=== PATIENT | male | born 1995 | race Two or more races ===

== ENCOUNTER 2024-08-08 17:39 | Inpatient (IN) | payer MEDICAID, OTHER ==
[~2024-08-08] VITALS: Ht 162.6 cm; Wt 77.2 kg
--- NOTE | 2024-08-08 18:13 | ED.PDOC ---
History of present illness HPI Comments HPI: 29 y/o M, BIBA with PMHX of Dm, anxiety, depression, BPD, and DID presents to the ED for CC of hyperglycemia. EMS reports, patient is coming from a crisis center where he was relayed to the ED for a further evaluation due to an elevated BS reading. Patient relays, that he was trying to be admitted to a detox program but was declined due to his hyperglycemia. Patient relays, that he was given x4 units of insulin at the crisis center. Patient endorses, using various illicit street drugs and alcohol; most recent being cocaine, methamphetamine. Patient denies auditory hallucinations, visual hallucinations, suicidal ideation, or homicidal ideation. No other symptoms or modifiers pre sent at this time. Patient states he has been out of his insulin for approximately a month. He picked it up yesterday. Patient wants to meet with the a professor of social work. He will stay in the hospital until tomorrow morning when the professor of social work available. VITALS: Temp: 98.7 BP: 150/89 HR:94 RR: 16 SPO2: 98% Past medical history: DM, ANXIETY, DEPRESSION, BPD, DID Past surgical history: BACK SX derick Izaguirre HPI: Poor Historian. Denies any symptoms REVIEW OF SYSTEMS: CONSTITUTIONAL: Denies acute: fever, diaphoresis, chills, generalized weakness. HEAD: Denies acute: headache, photophobia Eyes: Denies acute: Double vision, vision loss, eye pain, eye discharge. EARS: Denies acute: tinnitus, hearing loss, ear discharge, ear pain, THROAT: Denies acute: sore throat, swelling, difficulty swallowing , pain with swallowing, change in voice. NECK: Denies acute: neck pain, neck swelling, stiff neck. HEART: Denies acute : chest pain, palpitations, LUNGS: Denies acute: SOB, wheezing, cough, hemoptysis ABDOMEN: Denies acute: abdominal pain, Nausea, Vomiting, diarrhea, melena , hematemesis, hematochezia SKIN: Denies acute: rash, redness, lesions, itchiness. EXTREMITIES: Denies acute: calf pain, numbness, tingling, weakness, denies pain in extremity. Denies acute: Low back pain. Neuro: Denies acute: focal neurological deficit, motor or sensory focal neurological deficit, tremors, seizure like activity, confusion, dizziness, change in mental status, loss of bowel or bladder function, cauda equina like symptoms. : Denies acute: dysuria, hematuria, flank pain, increase in urinary frequency. PSYCH: Denies acute: hallucination, suicidal ideation, homicidal ideation. PHYSICAL EXAM: General: ----no----acute distress, awake and alert. Head: normocephalic, atraumatic. Neck: supple, trachea is midline, no swelling. Throat: Normal phonation. Eyes:, no erythema, no purulent discharge, no proptosis, no icterus. Heart: regular rate, regular rhythm, no significant murmur appreciated. Lungs: no apparent respiratory distress, Able to speak in full sentences. No wheezing, no rhonchi, no crackles. No stridors Clear to auscultation bilaterally. Abdomen: non tender to palpation, non distended, soft, no guarding, no rebound, + bowel sounds. Neuro: Awake, Alert, oriented to name, self, situation, follows commands GCS=15. Speech is normal. Skin: no petechia, no purpura, no cyanosis, non-pale, not jaundice. Lower extremities: --no - Pitting edema no deformity, no focal swelling, no calf TTP. Makes eye contact. moves all four extremities. Face: no apparent facial droop. Ambulating in the ED independently. ED COURSE: Chief Complaint: Hyperglycemia Time Seen by MD: 18:00 History of present illness: Nurses Notes, Flatwork Presser Notes, Medications, Allergies Allergies: Coded Allergies: NO KNOWN ALLERGIES (Unverified , 08/08/24) Home Meds Active Scripts Azithromycin (Azithromycin) 500 Mg Tab, 1 TAB PO DAILY for 5 Days, #5 TAB Prov:HAIDER LUONG DO 08/08/24 Information Source: Patient, Emergency Med Personnel Mode of Arrival: EMS Timing: Hours Duration: Since onset Prehospital treatment: Accucheck [place]: None History of: None Associated signs and symptoms: None Was a procedure done? Was a procedure done?: No Differential Diagnosis (DM) Differential Diagnosis: Dehydration, Diabetic Coma, DKA, Electrolyte Abnormality, Hyperglycemia, Hyperosmolar State, Hypoglycemia, UTI X-Ray, Labs, Meds, VS Vital Signs Date Time Temp Pulse Resp B/P (MAP) Pulse Ox O2 Delivery O2 Flow Rate FiO2 08/08/24 20:36 98.3 87 18 145/87 (106) 97 98.3 08/08/24 20:36 87 18 97 Room Air 08/08/24 17:59 93 08/08/24 17:51 98.7 94 16 150/89 (109) 94 98.7 Lab Test 08/08/24 22:16 08/08/24 22:15 08/08/24 21:50 08/08/24 21:28 Range/Units POC Glucose 369 H 430 *H 389 H 70-106 mg/dl Troponin I High Sensitivity < 3 L </=54 ng/L Test 08/08/24 20:29 08/08/24 20:12 08/08/24 19:12 Range/Units POC Glucose 350 H 70-106 mg/dl Urine Color Light-yellow Yellow Urine Clarity Clear Clear Urine pH 7.0 5.0-9.0 Urine Specific [place] 1.042 H 1.001-1.035 Urine Protein Negative Negative Urine Ketones Negative Negative Urine Blood Negative Negative /uL Urine Nitrite Negative Negative Urine Bilirubin Negative Negative Urine Urobilinogen Normal Negative mg/dL Urine Leukocyte Esterase Negative Negative /uL Urine RBC 6 0 - 3 /hpf Urine Microscopic WBC 2 0-3 /HPF Urine Squamous Epithelial Cells Few <5 /hpf Urine Bacteria None seen None Seen /hpf Urine Glucose 4+ H Normal mg/dL Urine Opiates Screen Neg NEGATIVE Urine Fentanyl Screen Neg NEGATIVE Urine Barbiturates Screen Neg NEGATIVE Urine Phencyclidine Screen Neg NEGATIVE Urine Amphetamines Screen Neg NEGATIVE Urine Benzodiazepines Screen Neg NEGATIVE Urine Cocaine Screen Neg NEGATIVE Urine Cannabinoids Screen Neg NEGATIVE White Blood Count 10.0 4.4-10.8 10^3/uL Red Blood Count 4.98 4.5-5.90 10^6/uL Hemoglobin 15.1 13.5-17.5 g/dL Hematocrit 43.8 41.0-53.0 % Mean Corpuscular Volume 87.9 80.0-100.0 fL Mean Corpuscular Hemoglobin 30.3 28.0-32.0 pg Mean Corpuscular Hemoglobin Concent 34.4 32.0-36.0 g/dL Red Cell Distribution Width 13.8 11.8-14.3 % Platelet Count 406 140-450 10^3/uL Mean Platelet Volume 7.3 6.9-10.8 fL Neutrophils (%) (Auto) 62.1 37.0-80.0 % Lymphocytes (%) (Auto) 26.6 10.0-50.0 % Monocytes (%) (Auto) 11.1 0.0-12.0 % Eosinophils (%) (Auto) 0.0 0.0-7.0 % Basophils (%) (Auto) 0.2 0.0-2.0 % Neutrophils # (Auto) 6.2 1.6-8.6 10 ^3/uL Lymphocytes # (Auto) 2.7 0.4-5.4 10 ^3/uL Monocytes # (Auto) 1.1 0-1.3 10 ^3/uL Eosinophils # (Auto) 0 0-0.8 10 ^3/uL Basophils # (Auto) 0 0-0.2 10 ^3/uL Nucleated Red Blood Cells 0.1 % Sodium Level 137 136-145 mmol/L Potassium Level 4.0 3.5-5.1 mmol/L Chloride Level 101 98-107 mmol/L Carbon Dioxide Level 29 20-31 mmol/L Anion Gap 7 5-15 Blood Urea Nitrogen 10 9-23 mg/dL Creatinine 0.94 0.700-1.30 mg/dL Glomerular Filtration Rate Calc 111 >90 mL/min BUN/Creatinine Ratio 10.6 10.0-20.0 Serum Glucose 359 H 74-106 mg/dL Lactic Acid Level 1.2 0.4-2.0 mmol/L Calcium Level 10.4 8.7-10.4 mg/dL Magnesium Level 2.2 1.6-2.6 mg/dL Total Bilirubin 0.4 0.2-1.0 mg/dL Aspartate Amino Transferase (AST) 12 L 13-40 U/L Alanine Aminotransferase (ALT) 22 7-40 U/L Alkaline Phosphatase 120 H 46-116 U/L Troponin I High Sensitivity < 3 L </=54 ng/L Total Protein 7.7 5.7-8.2 g/dL Albumin 5.0 H 3.2-4.8 g/dL Lipase 41 12-53 U/L Beta-Hydroxybutyric Acid 0.148 < 0.4 mmol/L Plasma/Serum Blood Alcohol < 3.0 <10 mg/dL Current Medications Medications (Trade) Dose Ordered Sig/Esdras Route Start Time Stop Time Status Last Admin Sodium Chloride 1,000 ml @ 1,000 mls/hr Q1H ONCE IV 08/08/24 18:00 08/08/24 18:59 DC 08/08/24 20:39 Ceftriaxone Sodium 50 ml @ 100 mls/hr ONCE ONCE IV 08/08/24 21:00 08/08/24 21:29 DC 08/08/24 21:04 Insulin Human Regular (InsuLIN R) 5 units ONCE ONCE IV 08/08/24 22:00 08/08/24 22:01 DC 08/08/24 21:58 Sodium Chloride 1,000 ml @ 1,000 mls/hr Q1H ONCE IV 08/08/24 22:30 08/08/24 23:29 08/08/24 22:23 [place] [address] Ph: [phone] DIAGNOSTIC IMAGING Diagnostic Imaging Report : [id number] Signed PATIENT: DERICK IZAGUIRRE ACCT: [id number] UNIT: [id number] : 1995 LOC: ER ROOM / BED: / AGE / SEX: 29 / M ADM STATUS: REG ER SERVICE 205 ORDERING PHYSICIAN: HAIDER LUONG DO PROCEDURE(s): CXRP - CHEST PORTABLE REASON: hyperglycemia ORDER NUMBER(s): [id number], ACCESSION NUMBER(s): [id number] CHEST RADIOGRAPH Indication: hyperglycemia Technique: Single frontal view of the chest was obtained Comparison: None FINDINGS: Lines and Tubes: None Lungs: Minimal opacity of the right lower lung zone. Pleura: No effusion. No pneumothorax. Cardiomediastinal contours: Unremarkable Bones: No acute osseous abnormality. IMPRESSION: Right lower lung zone pneumonia/atelectasis ATED BY: LAINE MABRY DO DICTATED DATE/TIME: 08/08/241841 SIGNED BY: LAINE MABRY DO SIGNED DATE/TIME: 08/08/241841 CC: Time of 1ST Reevaluation: 18:30 Reevaluation 1ST: Unchanged Time of 2ND Reevaluation: 22:44 Reevaluation 2ND: Improved Patient Education/Counseling: Diagnosis, Treatment Family Education/Counseling: Other Comments Patient presented with the above HPI.---hyperglycemia---workup was initiated. patient was found with the above mentioned diagnosis. the following medications were ordered: please refer to order lists of meds and tests obtained by myself Dr. Luong. Patient ED course and VS have been stabilized. Patient has been reassessed in the ED and remained in a stable condition. Pertinent incidental findings were discussed with the patient and/or family. Patient/family voices understanding and is agreeable with plan. Patient has been observed in the ED adequate length of time to insure improvement/stability. Escalation of care considered: Consideration of escalation to observation or admission Patient will wait in the ED per his request until he is seen by social service tomorrow. He will be placed for ED observation for now. The care of this patient was signed out to my colleague Dr. Mcarthur. All the reports of any imaging studies that were ordered by myself were reviewed by myself. Departure 1 Departure Time of Disposition: 19:48 Impression: Primary Impression: Hyperglycemia due to diabetes mellitus Additional Impressions: Noncompliance with medication regimen Pneumonia Homelessness Disposition: 01 HOME / SELF CARE / HOMELESS Condition: Stable Additional Instructions: [place] [address] Ph: [phone] DIAGNOSTIC IMAGING Diagnostic Imaging Report : [id number] Signed PATIENT: DERICK IZAGUIRRE ACCT: [id number] UNIT: [id number] : 1995 LOC: ER ROOM / BED: / AGE / SEX: 29 / M ADM STATUS: REG ER SERVICE 1754 ORDERING PHYSICIAN: HAIDER LUONG DO PROCEDURE(s): CXRP - CHEST PORTABLE REASON: hyperglycemia ORDER NUMBER(s): [id number], ACCESSION NUMBER(s): [id number] CHEST RADIOGRAPH Indication: hyperglycemia Technique: Single frontal view of the chest was obtained Comparison: None FINDINGS: Lines and Tubes: None Lungs: Minimal opacity of the right lower lung zone. Pleura: No effusion. No pneumothorax. Cardiomediastinal contours: Unremarkable Bones: No acute osseous abnormality. IMPRESSION: Right lower lung zone pneumonia/atelectasis ATED BY: LAINE MABRY DO DICTATED DATE/TIME: 08/08/241841 SIGNED BY: LAINE MABRY DO SIGNED DATE/TIME: 08/08/241841 CC: e-Prescriptions Azithromycin (Azithromycin) 500 Mg Tab 1 TAB PO DAILY for 5 Days, #5 TAB Prov: HAIDER LUONG DO 08/08/24 Discharged With: Self Critical Care Note Critical Care Time?: Yes (35 min-critical care time only) Heart Score Heart Score: Heart Score Response (Comments) Value History N/A 0 EKG N/A 0 Age N/A 0 Risk Factors N/A 0 Troponin N/A 0 Total 0 I personally scribed for HAIDER LUONG DO ([email or web address]) on 08/08/24 at 18:13. Electronically submitted by Catherine Aldrich ([email or web address]). I personally scribed for HAIDER LUONG DO ([email or web address]) on 08/08/24 at 18:21. Electronically submitted by Catherine Aldrich ([email or web address]). I personally scribed for CHERISEHAIDER CAMPOS J DO ([email or web address]) on 08/08/24 at 18:31. Electronically submitted by Catherine Aldrich ([email or web address]). I personally scribed for HAIDER LUONG J DO ([email or web address]) on 08/08/24 at 18:36. Electronically submitted by Catherine Aldrich ([email or web address]). I personally scribed for HAIDER LUONG J DO ([email or web address]) on 08/08/24 at 18:40. Electronically submitted by Catherine Aldrich ([email or web address]). I personally scribed for KEATON LUONGE J DO ([email or web address]) on 08/08/24 at 21:02. Electronically submitted by Catherine Aldrich ([email or web address]). KEAOTN LUONGE J DO Aug 08, 2024 18:13
--- NOTE | 2024-08-08 18:45 | DVH ---
CHEST RADIOGRAPH Indication: hyperglycemia Technique: Single frontal view of the chest was obtained Comparison: None FINDINGS: Lines and Tubes: None Lungs: Minimal opacity of the right lower lung zone. Pleura: No effusion. No pneumothorax. Cardiomediastinal contours: Unremarkable Bones: No acute osseous abnormality. IMPRESSION: Right lower lung zone pneumonia/atelectasis
[2024-08-08 19:25] LABS: Basophils # (auto) 0 10 ^3/uL (0-0.2); Basophils % (auto) 0.2 % (0.0-2.0); Eosinophils # (auto) 0 10 ^3/uL (0-0.8); Hematocrit 43.8 % (41.0-53.0); Hemoglobin 15.1 g/dL (13.5-17.5); Lymphocytes # (auto) 2.7 10 ^3/uL (0.4-5.4); Lymphocytes % (auto) 26.6 % (10.0-50.0); Mean Corpuscular Hemoglobin 30.3 pg (28.0-32.0); Mean Corpuscular Hgb Conc. 34.4 g/dL (32.0-36.0); Mean Corpuscular Volume 87.9 fL (80.0-100.0); Monocytes # (auto) 1.1 10 ^3/uL (0-1.3); Monocytes % (auto) 11.1 % (0.0-12.0); Neutrophils # (auto) 6.2 10 ^3/uL (1.6-8.6); Neutrophils % (auto) 62.1 % (37.0-80.0); Nucleated Red Blood Cells % 0.1 %; Platelet Count (auto) 406 10^3/uL (140-450); Red Blood Cells 4.98 10^6/uL (4.5-5.90); Red Cell Distribution Width 13.8 % (11.8-14.3)
[2024-08-08 19:41] LABS: Alanine Aminotransferase 22 U/L (7-40); Anion Gap 7 (5-15); BUN/Creatinine Ratio 10.6 (10.0-20.0); Blood Urea Nitrogen 10 mg/dL (9-23); Calcium 10.4 mg/dL (8.7-10.4); Carbon Dioxide 29 mmol/L (20-31); Chloride 101 mmol/L (98-107); Magnesium 2.2 mg/dL (1.6-2.6); Sodium 137 mmol/L (136-145); Total Protein 7.7 g/dL (5.7-8.2)
[2024-08-08 19:42] LABS: Bilirubin, Total 0.4 mg/dL (0.2-1.0)
[2024-08-08 19:44] LABS: Alkaline Phosphatase 120 U/L (46-116); Aspartate Aminotransferase 12 U/L (13-40); Blood Alcohol < 3.0 mg/dL (<10); Glucose 359 mg/dL (74-106)
[2024-08-08 20:03] LABS: Lipase 41 U/L (12-53)
[2024-08-08] MEDS: SODIUM CHLORIDE 0.9% 1,000 ML IV ONE ×2 (20:39→22:23)
[2024-08-08 20:49] LABS: Urine Bacteria None Seen /hpf (None Seen)
[2024-08-08] MEDS: InsuLIN REG 1unit/0.01ml Soln (100units/ml) IV ONE ×2 (20:49→21:58)
[2024-08-08] MEDS: cefTRIAXone 1GM/50ML D5W 50 ML IV ONE (21:04)
[2024-08-08 21:07] LABS: Urine Blood Negative /uL (Negative); Urine Clarity Clear (Clear); Urine Color Light-Yellow (Yellow); Urine Protein, UAD Negative (Negative); Urine Specific Gravity 1.042 (1.001-1.035); Urine Squamous Epithelial Cell FEW /hpf (<5); Urine Urobilinogen Normal (Negative); Urine WBC 2 /HPF (0-3)
[2024-08-08] MEDS ORDERED: AZIT500T66 PO (21:23)
[2024-08-08 21:25] LABS: Amphetamine Screen, Urine Neg (NEGATIVE)
[2024-08-08 21:26] LABS: Cannabinoid Screen, Urine Neg (NEGATIVE)
[2024-08-08 21:29] LABS: Barbiturate Scree,Urine Neg (NEGATIVE); Benzodiazephine Screen, Urine Neg (NEGATIVE); Cocaine Screen, Urine Neg (NEGATIVE); Opiate Scree,Urine Neg (NEGATIVE); Phencyclidine Screen, Urine Neg (NEGATIVE)
[2024-08-09 08:00] VITALS: PULSE 85; RESP 16; O2SAT 96
--- NOTE | 2024-08-09 09:34 | ED.PDOC ---
Departure 1 Departure Time of Disposition: 09:33 (Patient with a pneumonia. Patient is not septic. We will admit patient for further workup) Impression: Primary Impression: Pneumonia Qualified Codes: J18.9 - Pneumonia, unspecified organism Additional Impressions: Hyperglycemia due to diabetes mellitus Homelessness Noncompliance with medication regimen Disposition: ADMITTED INPATIENT Condition: Serious Additional Instructions: [address] [address] Ph: [phone] DIAGNOSTIC IMAGING Diagnostic Imaging Report : [id number] Signed PATIENT: DERICK PAYTON ACCT: [id number] UNIT: [id number] : 1995 LOC: ER ROOM / BED: / AGE / SEX: 29 / M ADM STATUS: REG ER SERVICE 53 ORDERING PHYSICIAN: HAIDER LUONG DO PROCEDURE(s): CXRP - CHEST PORTABLE REASON: hyperglycemia ORDER NUMBER(s): [id number], ACCESSION NUMBER(s): [id number] CHEST RADIOGRAPH Indication: hyperglycemia Technique: Single frontal view of the chest was obtained Comparison: None FINDINGS: Lines and Tubes: None Lungs: Minimal opacity of the right lower lung zone. Pleura: No effusion. No pneumothorax. Cardiomediastinal contours: Unremarkable Bones: No acute osseous abnormality. IMPRESSION: Right lower lung zone pneumonia/atelectasis ATED BY: LAINE MABRY DO DICTATED DATE/TIME: 08/08/241841 SIGNED BY: LAINE MABRY DO SIGNED DATE/TIME: 08/08/241841 CC: e-Prescriptions Azithromycin (Azithromycin) 500 Mg Tab 1 TAB PO DAILY for 5 Days, #5 TAB Prov: HAIDER LUONG DO 08/08/24 Discharged With: Self LIO BILLY MD Aug 09, 2024 09:34
[2024-08-09] MEDS: AZITHROMYCIN 250 MG TAB PO ONE (10:13)
[2024-08-09] MEDS: CEFEPIME 2GM/50ML NS 50 ML IV ONE (10:13)
[2024-08-09] MEDS ORDERED: HYDR-3682 PO (11:54)
[2024-08-09] MEDS ORDERED: OLAN1TAB19 PO (11:54)
[2024-08-09] MEDS ORDERED: DIVA1TAB38 PO (11:54)
[2024-08-09] MEDS ORDERED: ONDANSETRON HCL 4 MG/2 ML VIAL IV PRN (12:00)
[2024-08-09] MEDS ORDERED: DOCUSATE SOD 100 MG CAP PO PRN (12:00)
[2024-08-09] MEDS ORDERED: hydrOXYzine 25 MG TAB or CAP PO SCH (12:00)
[2024-08-09] MEDS ORDERED: ACETAMINOPHEN 325 MG TAB PO PRN (12:00)
[2024-08-09] MEDS ORDERED: INSU1INJ19 SC (12:28)
--- NOTE | 2024-08-09 12:28 | DVHHP2 ---
History of Present Illness Reason for Visit: Hyperglycemia History of Present Illness Graham Izaguirre is a 29-year-old male with past medical history of diabetes, anxiety, depression, borderline personality disorder, dissociative identity disorder, and polysubstance abuse, who came in due to elevated blood sugar levels. Patient states he was at [facility] for substance abuse and psychiatric treatment, when he blood sugars were too high for them to manage so they sent him to the hospital. Patient was up for discharge last night, but he refused to leave until he meet with a high school social studies tutor. Patient was kicked out of his living arrangement due to relapse of drug abuse. He states he would like help with placement for his psychiatric disorders and the polysubstance abuse. Psych: Anxiety, Depression, Other (Borderline personality disorder, Dissociative identity disorder, ) Endocrine: Diabetes Review of Systems Constitutional: Yes: Other (Hyperglycemia); No: Fever, Chills, Sweats, Weakness, Malaise Eyes: No: Pain, Vision change, Conjunctivae inflammation, Eyelid inflammation, Other, Redness ENT: No: Ear pain, Ear discharge, Nose pain, Nose discharge, Nose congestion, Mouth pain, Mouth swelling, Throat pain, Throat swelling, Other Respiratory: No: Cough, Dry, Shortness of breath, SOB with excertion, Wheezing, Hemoptysis, Pleuritic Pain, Sputum, Wheezing, Other Cardiovascular: No: Chest Pain, Palpitations, Orthopnea, Paroxysmal Noc. Dyspnea, Edema, Lt Headedness, Other Gastrointestinal: No: Nausea, Vomiting, Abdominal Pain, Diarrhea, Constipation, Melena, Hematochezia, Other Genitourinary: No Dysuria, No Frequency, No Incontinence, No Hematuria, No Retention, No Other Musculoskeletal: No: other, neck pain, shoulder pain, arm pain, back pain, hand pain, leg pain, foot pain Skin: No: Rash, Lesions, Jaundice, Bruising, Other Neurological: No: Weakness, Numbness, Incoordination, Change in speech, Confusion, Seizures, Other Allergies: Coded Allergies: NO KNOWN ALLERGIES (Unverified , 08/08/24) Medications Current Medications Medications Dose Ordered Sig/Esdras Route Start Time Stop Time Status Last Admin Dose Admin Sodium Chloride 10 ml Q8HR IV 08/09/24 14:00 UNV Ondansetron HCl 4 mg Q4HP PRN IV 08/09/24 12:00 UNV Docusate Sodium 100 mg BIDPRN PRN PO 08/09/24 12:00 UNV Acetaminophen 650 mg Q6HP PRN PO 08/09/24 12:00 UNV Divalproex Sodium 250 mg BID PO 08/09/24 22:00 UNV Patient Own Medication 1 tab QID PO 08/09/24 12:00 UNV Patient Own Medication 1 tab DAILY PO 08/10/24 10:00 UNV Exam Vital Signs Vital Signs Date Time Temp Pulse Resp B/P (MAP) Pulse Ox O2 Delivery O2 Flow Rate FiO2 08/09/24 10:00 98.6 88 16 103/58 (73) 96 98.6 08/09/24 08:00 Room Air* 0 21 General Appearance: Alert, Oriented X3, Cooperative, mild distress HEENT: Atraumatic, PERRLA, Mucous membr. moist/pink Respiratory: Clear to auscultation, Normal air movement Cardiovascular: Regular rate, Normal S1, Normal S2, No murmurs Abdominal: Normal bowel sounds, Soft, No tenderness, No hepatospenomegaly Extremities: No clubbing, No cyanosis, No edema, Normal pulses Skin: No rashes, No breakdown, No significant lesion Neuro: Normal gait, Normal speech, Strength at 5/5 X4 ext, Normal tone Psych/Mental Status: Mental status NL, Mood NL Labs/Xrays Labs Test 08/08/24 22:16 08/08/24 21:28 08/08/24 20:12 08/08/24 19:12 Range/Units POC Glucose 369 H 70-106 mg/dl Troponin I High Sensitivity < 3 L </=54 ng/L Urine Color Light-yellow Yellow Urine Clarity Clear Clear Urine pH 7.0 5.0-9.0 Urine Specific [place] 1.042 H 1.001-1.035 Urine Protein Negative Negative Urine Ketones Negative Negative Urine Blood Negative Negative /uL Urine Nitrite Negative Negative Urine Bilirubin Negative Negative Urine Urobilinogen Normal Negative mg/dL Urine Leukocyte Esterase Negative Negative /uL Urine RBC 6 0 - 3 /hpf Urine Microscopic WBC 2 0-3 /HPF Urine Squamous Epithelial Cells Few <5 /hpf Urine Bacteria None seen None Seen /hpf Urine Glucose 4+ H Normal mg/dL Urine Opiates Screen Neg NEGATIVE Urine Fentanyl Screen Neg NEGATIVE Urine Barbiturates Screen Neg NEGATIVE Urine Phencyclidine Screen Neg NEGATIVE Urine Amphetamines Screen Neg NEGATIVE Urine Benzodiazepines Screen Neg NEGATIVE Urine Cocaine Screen Neg NEGATIVE Urine Cannabinoids Screen Neg NEGATIVE White Blood Count 10.0 4.4-10.8 10^3/uL Red Blood Count 4.98 4.5-5.90 10^6/uL Hemoglobin 15.1 13.5-17.5 g/dL Hematocrit 43.8 41.0-53.0 % Mean Corpuscular Volume 87.9 80.0-100.0 fL Mean Corpuscular Hemoglobin 30.3 28.0-32.0 pg Mean Corpuscular Hemoglobin Concent 34.4 32.0-36.0 g/dL Red Cell Distribution Width 13.8 11.8-14.3 % Platelet Count 406 140-450 10^3/uL Mean Platelet Volume 7.3 6.9-10.8 fL Neutrophils (%) (Auto) 62.1 37.0-80.0 % Lymphocytes (%) (Auto) 26.6 10.0-50.0 % Monocytes (%) (Auto) 11.1 0.0-12.0 % Eosinophils (%) (Auto) 0.0 0.0-7.0 % Basophils (%) (Auto) 0.2 0.0-2.0 % Neutrophils # (Auto) 6.2 1.6-8.6 10 ^3/uL Lymphocytes # (Auto) 2.7 0.4-5.4 10 ^3/uL Monocytes # (Auto) 1.1 0-1.3 10 ^3/uL Eosinophils # (Auto) 0 0-0.8 10 ^3/uL Basophils # (Auto) 0 0-0.2 10 ^3/uL Nucleated Red Blood Cells 0.1 % Sodium Level 137 136-145 mmol/L Potassium Level 4.0 3.5-5.1 mmol/L Chloride Level 101 98-107 mmol/L Carbon Dioxide Level 29 20-31 mmol/L Anion Gap 7 5-15 Blood Urea Nitrogen 10 9-23 mg/dL Creatinine 0.94 0.700-1.30 mg/dL Glomerular Filtration Rate Calc 111 >90 mL/min BUN/Creatinine Ratio 10.6 10.0-20.0 Serum Glucose 359 H 74-106 mg/dL Lactic Acid Level 1.2 0.4-2.0 mmol/L Calcium Level 10.4 8.7-10.4 mg/dL Magnesium Level 2.2 1.6-2.6 mg/dL Total Bilirubin 0.4 0.2-1.0 mg/dL Aspartate Amino Transferase (AST) 12 L 13-40 U/L Alanine Aminotransferase (ALT) 22 7-40 U/L Alkaline Phosphatase 120 H 46-116 U/L Total Protein 7.7 5.7-8.2 g/dL Albumin 5.0 H 3.2-4.8 g/dL Lipase 41 12-53 U/L Beta-Hydroxybutyric Acid 0.148 < 0.4 mmol/L Plasma/Serum Blood Alcohol < 3.0 <10 mg/dL CHEST RADIOGRAPH FINDINGS: Lines and Tubes: None Lungs: Minimal opacity of the right lower lung zone. Pleura: No effusion. No pneumothorax. Cardiomediastinal contours: Unremarkable Bones: No acute osseous abnormality. IMPRESSION: Right lower lung zone pneumonia/atelectasis Assessment/Plan Assessment/Plan Assessment: Uncontrolled diabetes mellitus, Anxiety, Depression, Borderline personality disorder, Dissociative identity disorder, Polysubstance abuse, Plan: Admit to Med-Surg, Tele psych consult, Accu checks Q AC&HS with sliding scale, Home medications reconciled, Plan discussed with: Patient My Orders Orders - SANJAY MALONE Procedure Category Date Status Time Admit ADMIT 08/09/24 Transmitted 11:46 Code Status CODE 08/09/24 Transmitted 11:46 Sodium Chloride Lock PHA 08/09/24 Logged (Saline Lock Ns) 14:00 Ondansetron Hcl PHA 08/09/24 Logged (Zofran) 12:00 Docusate Sodium PHA 08/09/24 Logged Capsule (Colace 12:00 Complete Blood Count LAB 08/10/24 Verified 04:00 Comprehensive LAB 08/10/24 Verified Metabolic Panel 04:00 Condition: Serious MICHAEL 08/09/24 In Process 11:46 Acetaminophen Tablet PHA 08/09/24 Logged (Tylenol Tablet) 12:00 Consistent DIET 08/09/24 Transmitted Carb(Ccho)Diabetes Lunch Soc Telemed Psych CONS 08/09/24 Transmitted Consult 11:[address] Tablet PHA 08/09/24 Logged (Depakote "Dr" Tabl 22:00 (Nf) Hydroxyzine Hcl PHA 08/09/24 Logged 12:00 (Nf) Olanzapine PHA 08/10/24 Logged 10:00 Date of Service: Aug 09, 2024 Billing Provider: SANJAY MALONE Common Visit Codes: [id number] INP/OBS CARE (MOD) SANJAY MALONE Aug 09, 2024 12:28
[2024-08-09] MEDS ORDERED: DEXTROSE (50%) 50ML SYRG IV PRN (12:30)
--- NOTE | 2024-08-09 12:38 | ECG ---
[facility] Test Date: 2024-08-08 Test Time: 17:59:36 Pat Name: DERICK PAYTON Department: ER Room: 0245 Gender: M Vegetable Farmer: DARREN : 1995 Requested By: HAIDER LUONG Order Number: [id number] Reading MD: Domenico Matthews Measurements Intervals [place] Rate: 93 P: -84 FL: 89 QRS: 74 QRSD: 94 T: 35 QT: 336 QTc: 418 Interpretive Statements Ectopic atrial rhythm Short FL interval Electronically Signed On 08-09-2024 22:14:18 PDT by Domenico Matthews Please click the below link to view image of tracing.
[2024-08-09] MEDS: OLANZapine 5 MG TAB PO SCH (13:07)
[2024-08-09] MEDS: SODIUM CHLOR 0.9% PF (SALINE LOCK) 10ML VIAL/SYR IV SCH (14:28)
[2024-08-09 15:26] VITALS: PULSE 76; RESP 18; O2SAT 97
[2024-08-09 15:27] VITALS: BP 107/63; PULSE 92; RESP 21; TEMP 98.3; O2SAT 96
[2024-08-09] MEDS: ACCU-CHEK COMFORT CURVE STRIP VI SCH (17:00)
[2024-08-09] MEDS: InsuLIN REG 1unit/0.01ml Soln (100units/ml) SC SCH ×2 (17:00→22:31)
[2024-08-09 21:00] VITALS: BP 115/65; PULSE 76; RESP 18; TEMP 97.4; O2SAT 97
[2024-08-09] MEDS: INSULIN LANTUS (GLARGINE) 1 /0.01ml (100units/ml) SC SCH (22:32)
[2024-08-10 01:00] VITALS: BP 113/71; PULSE 90; RESP 18; TEMP 97.6; O2SAT 100
[2024-08-10 05:00] VITALS: BP 83/41; PULSE 77; RESP 18; TEMP 97.7; O2SAT 99
[2024-08-10 06:22] LABS: Alanine Aminotransferase 14 U/L (7-40); Albumin 3.9 g/dL (3.2-4.8); Alkaline Phosphatase 80 U/L (46-116); Anion Gap 7 (5-15); BUN/Creatinine Ratio 16.7 (10.0-20.0); Bilirubin, Total 0.3 mg/dL (0.2-1.0); Blood Urea Nitrogen 10 mg/dL (9-23); Calcium 9.3 mg/dL (8.7-10.4); Carbon Dioxide 26 mmol/L (20-31); Potassium 3.7 mmol/L (3.5-5.1); Sodium 142 mmol/L (136-145); Total Protein 6.2 g/dL (5.7-8.2)
[2024-08-10 06:25] LABS: Basophils # (auto) 0 10 ^3/uL (0-0.2); Eosinophils # (auto) 0 10 ^3/uL (0-0.8); Hematocrit 37.7 % (41.0-53.0); Hemoglobin 12.7 g/dL (13.5-17.5); Lymphocytes # (auto) 2.7 10 ^3/uL (0.4-5.4); Lymphocytes % (auto) 28.1 % (10.0-50.0); Mean Corpuscular Hemoglobin 29.8 pg (28.0-32.0); Mean Corpuscular Hgb Conc. 33.7 g/dL (32.0-36.0); Mean Corpuscular Volume 88.5 fL (80.0-100.0); Monocytes % (auto) 10.1 % (0.0-12.0); Neutrophils % (auto) 61.8 % (37.0-80.0); Nucleated Red Blood Cells % 0.2 %; Platelet Count (auto) 314 10^3/uL (140-450); Red Blood Cells 4.26 10^6/uL (4.5-5.90); Red Cell Distribution Width 13.5 % (11.8-14.3); White Blood Cell 9.7 10^3/uL (4.4-10.8)
[2024-08-10 06:33] LABS: Aspartate Aminotransferase < 8 U/L (13-40); Chloride 109 mmol/L (98-107); Glucose 188 mg/dL (74-106)
[2024-08-10 08:50] VITALS: BP 120/77; PULSE 70; RESP 17; TEMP 97.4; O2SAT 98
--- NOTE | 2024-08-10 16:35 | DVHDS2 ---
Discharge Summary Date of Admission Aug 09, 2024 at 11:46 Date of Discharge: Aug 10, 2024 Labs/Diagnostic Data: Laboratory Results Test 08/10/24 10:51 08/10/24 05:32 08/08/24 21:28 08/08/24 20:12 POC Glucose 267 mg/dl (70-106) White Blood Count 9.7 10^3/uL (4.4-10.8) Red Blood Count 4.26 10^6/uL (4.5-5.90) Hemoglobin 12.7 g/dL (13.5-17.5) Hematocrit 37.7 % (41.0-53.0) Mean Corpuscular Volume 88.5 fL (80.0-100.0) Mean Corpuscular Hemoglobin 29.8 pg (28.0-32.0) Mean Corpuscular Hemoglobin Concent 33.7 g/dL (32.0-36.0) Red Cell Distribution Width 13.5 % (11.8-14.3) Platelet Count 314 10^3/uL (140-450) Mean Platelet Volume 7.5 fL (6.9-10.8) Neutrophils (%) (Auto) 61.8 % (37.0-80.0) Lymphocytes (%) (Auto) 28.1 % (10.0-50.0) Monocytes (%) (Auto) 10.1 % (0.0-12.0) Eosinophils (%) (Auto) 0.0 % (0.0-7.0) Basophils (%) (Auto) 0.0 % (0.0-2.0) Neutrophils # (Auto) 6.0 10 ^3/uL (1.6-8.6) Lymphocytes # (Auto) 2.7 10 ^3/uL (0.4-5.4) Monocytes # (Auto) 1.0 10 ^3/uL (0-1.3) Eosinophils # (Auto) 0 10 ^3/uL (0-0.8) Basophils # (Auto) 0 10 ^3/uL (0-0.2) Nucleated Red Blood Cells 0.2 % Sodium Level 142 mmol/L (136-145) Potassium Level 3.7 mmol/L (3.5-5.1) Chloride Level 109 mmol/L (98-107) Carbon Dioxide Level 26 mmol/L (20-31) Anion Gap 7 (5-15) Blood Urea Nitrogen 10 mg/dL (9-23) Creatinine 0.60 mg/dL (0.700-1.30) Glomerular Filtration Rate Calc 132 mL/min (>90) BUN/Creatinine Ratio 16.7 (10.0-20.0) Serum Glucose 188 mg/dL (74-106) Hemoglobin A1c 11.4 % A1C (<5.7) Calcium Level 9.3 mg/dL (8.7-10.4) Total Bilirubin 0.3 mg/dL (0.2-1.0) Aspartate Amino Transferase (AST) < 8 U/L (13-40) Alanine Aminotransferase (ALT) 14 U/L (7-40) Alkaline Phosphatase 80 U/L (46-116) Total Protein 6.2 g/dL (5.7-8.2) Albumin 3.9 g/dL (3.2-4.8) Troponin I High Sensitivity < 3 ng/L (</=54) Urine Color Light-yellow (Yellow) Urine Clarity Clear (Clear) Urine pH 7.0 (5.0-9.0) Urine Specific Gilman 1.042 (1.001-1.035) Urine Protein Negative (Negative) Urine Ketones Negative (Negative) Urine Blood Negative /uL (Negative) Urine Nitrite Negative (Negative) Urine Bilirubin Negative (Negative) Urine Urobilinogen Normal mg/dL (Negative) Urine Leukocyte Esterase Negative /uL (Negative) Urine RBC 6 /hpf (0 - 3) Urine Microscopic WBC 2 /HPF (0-3) Urine Squamous Epithelial Cells Few /hpf (<5) Urine Bacteria None seen /hpf (None Seen) Urine Glucose 4+ mg/dL (Normal) Urine Opiates Screen Neg (NEGATIVE) Urine Fentanyl Screen Neg (NEGATIVE) Urine Barbiturates Screen Neg (NEGATIVE) Urine Phencyclidine Screen Neg (NEGATIVE) Urine Amphetamines Screen Neg (NEGATIVE) Urine Benzodiazepines Screen Neg (NEGATIVE) Urine Cocaine Screen Neg (NEGATIVE) Urine Cannabinoids Screen Neg (NEGATIVE) Test 08/08/24 19:12 Lactic Acid Level 1.2 mmol/L (0.4-2.0) Magnesium Level 2.2 mg/dL (1.6-2.6) Lipase 41 U/L (12-53) Beta-Hydroxybutyric Acid 0.148 mmol/L (< 0.4) Plasma/Serum Blood Alcohol < 3.0 mg/dL (<10) Other Laboratory Tests 08/10/24 05:32 Brief Hx & Hospital Course: 29-year-old male with a known history of insulin-dependent diabetes mellitus, anxiety and depression disorder, polysubstance abuse, personality disorder presented to the hospital with high blood sugars found to have uncontrolled hyperglycemia in the setting of diabetes mellitus insulin-dependent. Patient does take insulin at home. Patient is currently resides in a drug rehab center. Patient left against medical advice. Condition at Discharge: Undetermined Final Diagnosis/Problems List 1.Hyperglycemia in the setting of diabetes mellitus type 2 insulin-dependent 2. Chronic illicit drug use 3. Anxiety/personality disorder Discharge Disposition: AMA SNF Discharge Will this Physician continue t: No Discharge Statement: "Patient was advised to return to the ER or call 911 if any headaches, dizziness, shortness of breath, chest pain, abdominal pain, bleeding, fevers, or worsening of medical condition. Patient was counseled about treatment plan, medications, possible side effects, patientverbalized understanding. All questions were answered to the best of my ability. This discharge took greater then 30 minutes in planning, reviewing documentation, counseling the patient, and discussing with other team members." ASSESSMENT ASSESSMENT Assessment Date of Service: Aug 10, 2024 Billing Provider: RAVI SCHAFFER MD Common Visit Codes: 59932-YQZ/OBS DISCH DAY <30MIN RAVI SCHAFFER MD Aug 10, 2024 16:35
== END 2024-08-10 11:36 | disposition left against medical advice (07) | DRG 420 ==
LOC: EDBD 17:39 → ER 17:43 → OVERFLOW 08-09 11:46 → EAST 08-09 15:18
PROVIDERS: ADMIT Internal Medicine; ATTEND Internal Medicine
DX: E11.65 Type 2 diabetes mellitus with hyperglycemia (principal); F19.10 Other psychoactive substance abuse, uncomplicated; J98.11 Atelectasis; F32.A Depression, unspecified; F41.9 Anxiety disorder, unspecified; F44.81 Dissociative identity disorder; F60.3 Borderline personality disorder; Z53.29 Procedure and treatment not carried out because of patient's decision for other reasons; Z59.00 Homelessness unspecified; Z91.148 Patient's other noncompliance with medication regimen for other reason; Z79.4 Long term (current) use of insulin
CPT/HCPCS: 36415; 71045; 80053; 80307; 80320; 81001; 82010; 82962; 83036; 83605; 83690; 83735; 84484; 85025; 93005; 99291; G0378; J0692; J1815

== ENCOUNTER 2024-08-12 19:31 | Emergency (ER) | payer MEDICAID ==
[~2024-08-12] VITALS: Ht 165.1 cm; Wt 76.2 kg
[~2024-08-12 19:31] MED LIST: DIVA1TAB38 PO; HYDR-3682 PO; INSU1INJ19 SC; OLAN1TAB19 PO
--- NOTE | 2024-08-12 19:48 | ED.PDOC ---
Psychiatric HPI Comments 29-year-old male with no reported PMHx presents with a chief complaint of suicidal ideation and attempt x onset this evening. Patient states that he just left a [facility]" and was telling them that he was feeling suicidal and they "told me to go to the nearest hospital". Patient reports that he took 200 units of Insulin outside the ER in an attempt to end his life. Patient mentions that he was here recently and that "my psych medications should be on file". Patient has flat affect at this time. Time Seen by MD: 19:41 Reviewed Notes: Medications, Allergies Information Source: Patient Mode of Arrival: Ambulatory Severity: Unable to Care for Self, Unable to Control Self Severity of Pain: None Severity of Mental Status: Severe Severity of Symptoms: None Timing: Minutes Duration: Since onset Prehospital treatment: None Presents with: Suicidal Ideation Attempt: Other Ingestion: Drug(s) Ingested Circumstance: Other Current substance abuse: Unknown Stressors: Homeless History of: Suicidal Attempt, ETOH Withdrawl, Detox Treatment Quality: Hopelessness Past Medical History PAST MEDICAL HISTORY: Denies Surgical History: Denies all surgeries Family History Family History: Reviewed,noncontributory to illness Social History Smoker: Non-Smoker Alcohol: Denies ETOH Use Drugs: Denies Drug Use Lives In: Homeless Constitutional: denies: chills, diaphoresis, fatigue, fever, malaise, sweats, weakness, others EENTM: denies: blurred vision, double vision, ear bleeding, ear discharge, ear drainage, ear pain, ear ringing, eye pain, eye redness, hearing loss, mouth pain, mouth swelling, nasal discharge, nose bleeding, nose congestion, nose pain, photophobia, tearing, throat pain, throat swelling, voice changes, others Respiratory: denies: cough, hemoptysis, orthopnea, SOB at rest, shortness of breath, SOB with excertion, stridor, wheezing, others Cardiovascular: denies: chest pain, dizzy spells, diaphoresis, Dyspnea on exertion, edema, irregular heart beat, left arm pain, lightheadedness, palpitations, PND, syncope, others Gastrointestinal: denies: abdomen distended, abdominal pain, blood streaked bowels, constipated, diarrhea, dysphagia, difficulty swallowing, hematemesis, melena, nausea, poor appetite, poor fluid intake, rectal bleeding, rectal pain, vomiting, others Genitourinary: denies: burning, dysuria, flank pain, frequency, hematuria, incontinence, penile discharge, penile sore, pain, testicle pain, testicle swelling, urgency, others Neurological: denies: dizziness, fainting, headache, left sided numbness, left sided weakness, numbness, paresthesia, pre-existing deficit, right sided numbness, right sided weakness, seizure, speech problems, tingling, tremors, weakness, others Musculoskeletal: denies: back pain, gout, joint pain, joint swelling, muscle pain, muscle stiffness, neck pain, others Integumetry: denies: bruises, change in color, change in hair/nails, dryness, laceration, lesions, lumps, rash, wounds, others Allergic/Immunocompromised: denies: Difficulty Healing, Frequent Infections, Hives, Itching, others Hematologic/Lymphatic: denies: anemia, blood clots, easy bleeding, easy bruising, swollen glands, others Endocrine: denies: excessive hunger, excessive sweating, excessive thirst, excessive urination, flushing, intolerance to cold, intolerance to heat, unexplained weight gain, unexplained weight loss, others Psychiatric: reports: suicidal; denies: anxiety, bipolar disorder, depression, hopeless, panic disorder, schizophrenia, sleepless, others All Other Systems: Reviewed and Negative Physical Exam General Appearance: No Apparent Distress, Normal HEENT: Normal ENT Inspection, Pharynx Normal, TMs Normal Neck: Full Range of Motion, Non-Tender, Normal, Normal Inspection Respiratory: Chest Non-Tender, Lungs Clear, No Accessory Muscle Use, No Respiratory Distress, Normal Breath Sounds Cardiovascular: No Edema, No JVD, No Murmur, No Gallop, Normal Peripheral Pulses, Regular Rate/Rhythm Breast Exam: Deferred Gastrointestinal: No Organomegaly, Non Tender, No Pulsatile Mass, Normal Bowel Sounds, Soft Genitalia: Deferred Pelvic: Deferred Rectal: Deferred Extremities: No calf tenderness, Normal capillary refill, Normal inspection, Normal range of motion, Non-tender, No pedal edema Musculoskeletal : Apperance: Normal Neurologic: Alert, chief client officer II-XII nml as Tested, No Motor Deficits, Normal Affect, Normal Mood, No Sensory Deficits Cerebellar Function: Normal Reflexes: Normal Skin: Dry, Normal Color, Warm Lymphatic: No Adenopathy Was a procedure done? Was a procedure done?: No X-Ray, Labs, Meds, VS Vital Signs Date Time Temp Pulse Resp B/P (MAP) Pulse Ox O2 Delivery O2 Flow Rate FiO2 08/13/24 00:00 107 20 122/73 (89) 98 08/12/24 22:20 97.9 129 20 158/90 (112) 98 97.9 08/12/24 22:20 126 20 98 Room Air* 0 21 08/12/24 21:11 150 16 98 Room Air* 0 21 08/12/24 21:10 97.3 150 20 151/94 (113) 98 97.3 08/12/24 19:32 97.3 150 20 151/94 (113) 98 97.3 Lab Test 08/13/24 01:43 08/13/24 00:20 08/12/24 23:41 08/12/24 23:07 Range/Units POC Glucose 72 136 H 78 78 70-106 mg/dl Test 08/12/24 22:34 08/12/24 21:39 08/12/24 20:36 08/12/24 20:16 Range/Units POC Glucose 76 72 106 71 70-106 mg/dl Test 08/12/24 19:51 Range/Units White Blood Count 11.8 H 4.4-10.8 10^3/uL Red Blood Count 5.13 4.5-5.90 10^6/uL Hemoglobin 15.7 # 13.5-17.5 g/dL Hematocrit 45.3 # 41.0-53.0 % Mean Corpuscular Volume 88.1 80.0-100.0 fL Mean Corpuscular Hemoglobin 30.5 28.0-32.0 pg Mean Corpuscular Hemoglobin Concent 34.6 32.0-36.0 g/dL Red Cell Distribution Width 13.7 11.8-14.3 % Platelet Count 441 140-450 10^3/uL Mean Platelet Volume 7.0 6.9-10.8 fL Neutrophils (%) (Auto) 66.8 37.0-80.0 % Lymphocytes (%) (Auto) 27.8 10.0-50.0 % Monocytes (%) (Auto) 5.1 0.0-12.0 % Eosinophils (%) (Auto) 0.0 0.0-7.0 % Basophils (%) (Auto) 0.3 0.0-2.0 % Neutrophils # (Auto) 7.9 1.6-8.6 10 ^3/uL Lymphocytes # (Auto) 3.3 0.4-5.4 10 ^3/uL Monocytes # (Auto) 0.6 0-1.3 10 ^3/uL Eosinophils # (Auto) 0 0-0.8 10 ^3/uL Basophils # (Auto) 0 0-0.2 10 ^3/uL Nucleated Red Blood Cells 0.0 % Sodium Level 141 136-145 mmol/L Potassium Level 4.1 3.5-5.1 mmol/L Chloride Level 104 98-107 mmol/L Carbon Dioxide Level 28 20-31 mmol/L Anion Gap 9 5-15 Blood Urea Nitrogen 17 9-23 mg/dL Creatinine 0.78 0.700-1.30 mg/dL Glomerular Filtration Rate Calc 122 >90 mL/min BUN/Creatinine Ratio 21.8 H 10.0-20.0 Serum Glucose 56 #L 74-106 mg/dL Calcium Level 11.0 H 8.7-10.4 mg/dL Total Bilirubin 0.2 0.2-1.0 mg/dL Aspartate Amino Transferase (AST) 16 13-40 U/L Alanine Aminotransferase (ALT) 25 7-40 U/L Alkaline Phosphatase 128 H 46-116 U/L Total Protein 8.3 H 5.7-8.2 g/dL Albumin 5.6 H 3.2-4.8 g/dL Salicylates Level < 3.0 -30 mg/dL Acetaminophen Level < 2.0 L 10.0-20.0 UG/ML Plasma/Serum Blood Alcohol < 3.0 <10 mg/dL Time of 1ST Reevaluation: 20:11 Reevaluation 1ST: Unchanged Time of 2ND Reevaluation: 21:47 Reevaluation 2ND: Improved (BLOOD GLUCOSE IS NORMAL AND RISING, PATIENT IS MEDICALLY CLEARED AT THIS TIME) Consultation: Psychiatry Patient Education/Counseling: Diagnosis, Treatment, Prognosis Family Education/Counseling: No Family Present Departure 1 Departure Time of Disposition: 02:22 Impression: Primary Impression: Suicidal ideations Additional Impression: Insulin overdose Disposition: [address] [place] [address] Condition: Guarded Comments Intentional Insulin Overdose with Suicidal Ideation Chief Complaint: Intentional insulin overdose with suicidal ideation History of Present Illness: 29-year-old male with a history of type 2 diabetes mellitus and insulin dependence presents to the emergency department following an intentional insulin overdose in a suicide attempt earlier today. The patient has a significant psychiatric history including previous suicide attempts and alcohol abuse. Upon presentation, the patient was monitored for potential hypoglycemia, with blood glucose levels remaining stable in the 70s. Review of Systems: Limited due to psychiatric nature of presentation Medications: Insulin (type and dosage not specified) Other medications not documented Allergies: No known allergies documented Past Medical History: Type 2 Diabetes Mellitus, insulin-dependent Hypertension Alcohol abuse History of suicide attempts Lab Results: WBC: 11.8 (Elevated) Blood glucose: Stable in 70s Other labs reported as unremarkable Medical Decision Making: Summary Statement: 29-year-old male with insulin-dependent type 2 diabetes presenting with intentional insulin overdose requiring medical stabilization and psychiatric evaluation. Problem List: 1. Intentional insulin overdose, 2. Suicidal ideation, 3. Type 2 diabetes mellitus, 4. Hypertension, 5. Alcohol abuse Differential Diagnosis: 1. Major depressive disorder, 2. Substance-induced mood disorder, 3. Adjustment disorder with depressed mood, 4. Hypoglycemia secondary to insulin overdose ED Course: Patient was monitored for glycemic control with stable glucose levels. Medical clearance was achieved. Psychiatric evaluation completed with recommendation for inpatient psychiatric admission. Patient to be placed on hold pending transfer to inpatient mental health facility. Assessment and Plan: 1. Intentional Insulin Overdose/Suicidal Ideation: - Patient medically cleared after period of observation - Psychiatric evaluation completed - Plan for inpatient psychiatric admission - Patient to be placed on psychiatric hold 2. Type 2 Diabetes Mellitus: - Blood glucose stable in 70s - Continue monitoring during psychiatric admission 3. Hypertension: - Continue home medications as appropriate 4. Alcohol Abuse: - To be addressed during psychiatric admission - Consider addiction medicine consultation during inpatient stay Billing Information: ICD-10: T38.3X2A - Poisoning by insulin and oral hypoglycemic drugs, intentional self-harm, initial encounter ICD-10: R45.851 - Suicidal ideations ICD-10: E11.9 - Type 2 diabetes mellitus without complications ICD-10: F10.20 - Alcohol dependence, uncomplicated ICD-10: I10 - Essential (primary) hypertension Critical Care Note Critical Care Time?: No Stability Stability form required: No Heart Score Heart Score: Heart Score Response (Comments) Value History N/A 0 EKG N/A 0 Age N/A 0 Risk Factors N/A 0 Troponin N/A 0 Total 0 I personally scribed for AMINA GROVES MD ([email or web address]) on 08/12/24 at 19:48. Electronically submitted by Chris Garay [email or web address]). AMINA GROVES MD Aug 12, 2024 19:48
[2024-08-12 20:09] LABS: Basophils # (auto) 0 10 ^3/uL (0-0.2); Basophils % (auto) 0.3 % (0.0-2.0); Eosinophils # (auto) 0 10 ^3/uL (0-0.8); Hematocrit 45.3 % (41.0-53.0); Hemoglobin 15.7 g/dL (13.5-17.5); Lymphocytes # (auto) 3.3 10 ^3/uL (0.4-5.4); Lymphocytes % (auto) 27.8 % (10.0-50.0); Mean Corpuscular Hemoglobin 30.5 pg (28.0-32.0); Mean Corpuscular Hgb Conc. 34.6 g/dL (32.0-36.0); Mean Corpuscular Volume 88.1 fL (80.0-100.0); Monocytes # (auto) 0.6 10 ^3/uL (0-1.3); Monocytes % (auto) 5.1 % (0.0-12.0); Neutrophils # (auto) 7.9 10 ^3/uL (1.6-8.6); Neutrophils % (auto) 66.8 % (37.0-80.0); Platelet Count (auto) 441 10^3/uL (140-450); Red Blood Cells 5.13 10^6/uL (4.5-5.90); Red Cell Distribution Width 13.7 % (11.8-14.3); White Blood Cell 11.8 10^3/uL (4.4-10.8)
[2024-08-12 20:30] LABS: Alanine Aminotransferase 25 U/L (7-40); Anion Gap 9 (5-15); Aspartate Aminotransferase 16 U/L (13-40); BUN/Creatinine Ratio 21.8 (10.0-20.0); Blood Urea Nitrogen 17 mg/dL (9-23); Carbon Dioxide 28 mmol/L (20-31); Chloride 104 mmol/L (98-107); Potassium 4.1 mmol/L (3.5-5.1); Sodium 141 mmol/L (136-145)
[2024-08-12 20:38] LABS: Acetaminophen < 2.0 UG/ML (10.0-20.0); Albumin 5.6 g/dL (3.2-4.8); Alkaline Phosphatase 128 U/L (46-116); Bilirubin, Total 0.2 mg/dL (0.2-1.0); Blood Alcohol < 3.0 mg/dL (<10); Glucose 56 mg/dL (74-106); Salicylate < 3.0 mg/dL (-30); Total Protein 8.3 g/dL (5.7-8.2)
[2024-08-12 21:11] VITALS: PULSE 150; RESP 16; O2SAT 98
[2024-08-12 22:20] VITALS: PULSE 126; RESP 20; O2SAT 98
--- NOTE | 2024-08-13 00:23 | DVHINCON2 ---
Date of Service if different f: Aug 13, 2024 Time of Service: 00:00 Consultation ([facility]) Consulting Physician: EREN GUEVARA MD Labs Laboratory Tests Test 08/12/24 19:51 08/12/24 23:41 White Blood Count 11.8 10^3/uL (4.4-10.8) Red Blood Count 5.13 10^6/uL (4.5-5.90) Hemoglobin 15.7 g/dL (13.5-17.5) Hematocrit 45.3 % (41.0-53.0) Mean Corpuscular Volume 88.1 fL (80.0-100.0) Mean Corpuscular Hemoglobin 30.5 pg (28.0-32.0) Mean Corpuscular Hemoglobin Concent 34.6 g/dL (32.0-36.0) Red Cell Distribution Width 13.7 % (11.8-14.3) Platelet Count 441 10^3/uL (140-450) Mean Platelet Volume 7.0 fL (6.9-10.8) Neutrophils (%) (Auto) 66.8 % (37.0-80.0) Lymphocytes (%) (Auto) 27.8 % (10.0-50.0) Monocytes (%) (Auto) 5.1 % (0.0-12.0) Eosinophils (%) (Auto) 0.0 % (0.0-7.0) Basophils (%) (Auto) 0.3 % (0.0-2.0) Neutrophils # (Auto) 7.9 10 ^3/uL (1.6-8.6) Lymphocytes # (Auto) 3.3 10 ^3/uL (0.4-5.4) Monocytes # (Auto) 0.6 10 ^3/uL (0-1.3) Eosinophils # (Auto) 0 10 ^3/uL (0-0.8) Basophils # (Auto) 0 10 ^3/uL (0-0.2) Nucleated Red Blood Cells 0.0 % Sodium Level 141 mmol/L (136-145) Potassium Level 4.1 mmol/L (3.5-5.1) Chloride Level 104 mmol/L (98-107) Carbon Dioxide Level 28 mmol/L (20-31) Anion Gap 9 (5-15) Blood Urea Nitrogen 17 mg/dL (9-23) Creatinine 0.78 mg/dL (0.700-1.30) Glomerular Filtration Rate Calc 122 mL/min (>90) BUN/Creatinine Ratio 21.8 (10.0-20.0) Serum Glucose 56 mg/dL (74-106) Calcium Level 11.0 mg/dL (8.7-10.4) Total Bilirubin 0.2 mg/dL (0.2-1.0) Aspartate Amino Transf (AST/SGOT) 16 U/L (13-40) Alanine Aminotransferase (ALT/SGPT) 25 U/L (7-40) Alkaline Phosphatase 128 U/L (46-116) Total Protein 8.3 g/dL (5.7-8.2) Albumin 5.6 g/dL (3.2-4.8) Salicylates Level < 3.0 mg/dL (-30) Acetaminophen Level < 2.0 UG/ML (10.0-20.0) Plasma/Serum Blood Alcohol < 3.0 mg/dL (<10) Bedside Glucose 78 mg/dl (70-106) Appearance: Stated age Psychomotor activity: WNL Behavioral: Cooperative Eye contact: Appropriate Speech: WNL Affect: Appropriate, Mood Congruent Mood: Depressed Thought processes: Linear/Goal-directed Thought content: WNL Suicidal ideations: Present Homicidal ideations: Absent Orientation: Person, Place, Time, Situation Memory intact: Recent Intellect: Average Abstractability: WNL Concentration: Adequate Attention: Adequate Judgement: WNL Insight: Fair Vitals Vital Signs Date Time Temp Pulse Resp B/P (MAP) Pulse Ox O2 Delivery O2 Flow Rate FiO2 08/12/24 22:20 97.9 129 20 158/90 (112) 98 97.9 08/12/24 22:20 Room Air* 0 21 Treatment plan discussed: With staff Medication adjusted: Yes Labs ordered: No Psychotherapy provided: No Type: Voluntary History of Present Illness Reason for Consult : psychiatric evaluation PER ED PHYSICIAN: 29-year-old male with no reported PMHx presents with a chief complaint of suicidal ideation and attempt x onset this evening. Patient states that he just left a [facility] "sn[facility]" and was telling them that he was feeling suicidal and they "told me to go to the nearest hospital". Patient reports that he took 200 units of Insulin outside the ER in an attempt to end his life. Patient mentions that he was here recently and that "my psych medications should be on file". Patient has flat affect at this time. PSYCHIATRIST HPI: The patient was seen and evaluated at [facility] telepsychiatry platform. 29 yr old male reported he attempted suicide by taking 250 units of insulin. He reported that his suicidal thoughts crept in a couple days ago. He said the last few days he had thoughts of harming himself. He noted he has persistent thoughts of suicide. He has guilt feelings, sleep has been poor with frequent nightmares, appetite has been good, low motivation and low energy. He noted he had been on Zyprexa 10mg daily and depakote DR 250mg BID back in March but hadn't continued it. He reported being on much higher dose of depakote when he was in [place]. He denied having HI/AVH. Past Psychiatric History : about 8 hospitalizations, last admitted in , "At least 30" suicide attempts, Last in Apr 02. Diagnosed with MDD, JACK, PTSD, DID. Past Medical History : IDDM asthma, hypertension, back surgery in 2020 Current psychotropic medicationsmedications: none NKDA Substance use: alcohol-heavy use in past, but sober for 2.5. Meth, cocaine, MJ use about two weeks ago. Had bbeen using almost daily. Denied use of other substances. Social History : Homeless. Moved from [facility] in Apr 02. Unemployed. No income. 3 children (11, 10, 14) [place] with mother. for 7 years and . Diagnosis: UNSPECIFIED DEPRESSIVE DISORDER Formulation: This 29 yr old male appears to suffer from depression and may benefit admission to [facility]. He meets criteria for involuntary hospitalization for danger to self. He may benefit from starting depakote. Plan: 1. Transfer to [facility] when bed available. 2. [facility] 5150 involuntary hold. Monitor for safety. 3. Medications: Recommend starting Depakote DR 250mg BID. 4. Case discussed with ED physician, Dr Vasquez. 5. Please recontact psychiatry for further follow up or reevaluation. Assessment/Diagnosis/Plan Reviewed: Labs, Medications, Previous Orders EREN GUEVARA MD Aug 13, 2024 00:04
--- NOTE | 2024-08-13 08:48 | ED.PDOC ---
Departure 1 Departure Time of Disposition: 08:48 (Patient is resting comfortably in were awaiting psychiatric bed placement) Impression: Primary Impression: Suicidal ideations Additional Impression: Insulin overdose Qualified Codes: T38.3X2A - Poisoning by insulin and oral hypoglycemic [antidiabetic] drugs, intentional self-harm, initial encounter [facility] Condition: Guarded LIO BILLY MD Aug 13, 2024 08:48
[2024-08-13 08:59] LABS: Amphetamine Screen, Urine Neg (NEGATIVE); Barbiturate Scree,Urine Neg (NEGATIVE); Benzodiazephine Screen, Urine Neg (NEGATIVE); Cannabinoid Screen, Urine Neg (NEGATIVE); Cocaine Screen, Urine Neg (NEGATIVE); Opiate Scree,Urine Neg (NEGATIVE); Phencyclidine Screen, Urine Neg (NEGATIVE)
[2024-08-13] MEDS: hydrOXYzine HCL 10 MG TAB PO ONE (09:04)
[2024-08-13] MEDS: NICOTINE 21MG/24 HR TOPICAL PATCH TD ONE (09:04)
[2024-08-14 08:01] VITALS: BP 120/79; TEMP 98.3
[2024-08-14 08:10] VITALS: PULSE 99; RESP 16; O2SAT 98
== END 2024-08-14 08:12 | disposition short-term general hospital (02) ==
LOC: ER 19:31
DX: T38.3X2A Poisoning by insulin and oral hypoglycemic [antidiabetic] drugs, intentional self-harm, initial encounter (principal); R45.851 Suicidal ideations; Z79.899 Other long term (current) drug therapy; Z59.00 Homelessness unspecified; Y92.89 Other specified places as the place of occurrence of the external cause
CPT/HCPCS: 36415; 80053; 80307; 80320; 80329; 82947; 82962; 85025